=== PATIENT | male | born 1950 | race Caucasian/White ===

== ENCOUNTER 2017-06-01 11:24 | Emergency (ER) | payer OTHER, MEDICARE ==
[2017-06-01 11:25] VITALS: BP 177/94; PULSE 95; RESP 16; TEMP 98; O2SAT 96
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
[2017-06-01] MEDS ORDERED: TYLETAB34 PO (13:50)
[2017-06-01] MEDS ORDERED: TETANUS/DIPHTHERIA TOXOID ADULT 0.5 ML VIAL IM ONE (14:00)
== END 2017-06-01 14:39 | disposition home or self-care (01) ==
LOC: NEPD 11:24
DX: M79.602 Pain in left arm (principal); S80.211A Abrasion, right knee, initial encounter; S61.412A Laceration without foreign body of left hand, initial encounter; V03.90XA Pedestrian on foot injured in collision with car, pick-up truck or van, unspecified whether traffic or nontraffic accident, initial encounter; Z23 Encounter for immunization
CPT/HCPCS: 73130; 73564; 90471; 90714